=== PATIENT | male | born 1935 | race Caucasian/White ===

== ENCOUNTER → 2018-08-03 13:00 | Outpatient (CLI) | payer MEDICARE, SELFPAY ==
[2018-08-03 13:32] LABS: Add Manual Diff / Slide Review NO; Basophils Percent Auto 0.7 % (0-2); Hematocrit 31.1 % (41-53); Hemoglobin 10.6 g/dL (13.5-17.5); Lymphocytes Percent Auto 43.1 % (25-40); Mean Corpuscular Hemoglobin 34.8 PG (26-34); Mean Corpuscular Volume 102.2 fL (80-100); Monocytes Percent Auto 1.6 % (3-14); Neutrophils Absolute Auto 2000 /uL (3000-5900); Neutrophils Percent Auto 53.6 % (50-75); Platelet Count 219 X10^3/uL (150-400); Red Blood Cell Count 3.04 X10^6/uL (4.5-5.9); White Blood Cell Count 3.8 X10^3/uL (4.5-11.0)
[2018-08-03 13:41] LABS: Alanine Aminotransferase 14 IU/L (21-72); Albumin 4.5 g/dL (3.5-5.0); Albumin Globulin Ratio 1.6 (1.0-2.8); Alkaline Phosphatase 91 U/L (38-126); Aspartate Aminotransferase 29 IU/L (17-59); Bilirubin Total 0.7 mg/dL (0.2-1.3); Blood Urea Nitrogen 18 mg/dL (9-20); Calcium 9.4 mg/dL (8.4-10.2); Carbon Dioxide 26 mmol/L (22-32); Chloride 102 mmol/L (98-107); Estimated Glomerular Filt Rate > 60.0 mL/min (>60); Globulin 2.9 g/dL (1.7-4.1); Glucose 120 mg/dL (80-110); HEMOLYSIS < 15 (0-50); Lactate Dehydrogenase 460 U/L (313-618); Potassium 3.8 mmol/L (3.4-5.1); Sodium 140 mmol/L (137-145); Total Protein 7.4 g/dL (6.3-8.2)
== END ==
PROVIDERS: Family Provider Internal Medicine; PCP Internal Medicine
DX: C91.40 Hairy cell leukemia not having achieved remission (principal); C61 Malignant neoplasm of prostate
CPT/HCPCS: 36415; 80053; 83615; 85025

== ENCOUNTER 2018-11-26 15:49 | Emergency (ER) | payer MEDICARE, SELFPAY ==
[2018-11-26 15:51] VITALS: BP 148/87; PULSE 96; RESP 20; TEMP 36.4; O2SAT 100; BMI 21.7
--- NOTE | 2018-11-26 16:29 | ED.BACK ---
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 He reports that it has worsened over the past couple of days. He is being treated by [facility]. He called them today and he told them of his symptoms and he was told to come to the emergency room for to have a workup completed. He denies any chest pain. He denies any shortness of breath. No fevers no chills. No trauma to the shoulder area. He reports that the shoulder pain was exacerbated by the car ride. No nausea vomiting. He is able to speak full sentences. Pain is limited to the shoulders and thoracic spine area. He denies any recent loss of bladder or bowel control. MD Complaint: back pain Related Data Home Medications Medication Instructions Recorded Confirmed loratadine 15 mg PO DAILY #0 05/18/13 11/26/18 fluorouracil [Efudex] 1 cameron TOPICAL DAILY #0 11/26/16 11/26/18 lisinopril 5 mg PO QPM #0 05/20/17 11/26/18 acetaminophen 325 mg PO Q4-6H PRN 01/20/18 11/26/18 clobetasol [Cormax] 1 applic TOPICAL BID PRN 01/20/18 11/26/18 tamsulosin [Flomax] 0.4 mg PO BID 08/04/18 11/26/18 cyanocobalamin (vitamin B-12) 1,000 mcg PO DAILY 11/26/18 11/26/18 [Vitamin B-12] folic acid 1 mg PO QPM 11/26/18 11/26/18 leuprolide (4 month) [Lupron Depot 1 dose IM DIRECTED 11/26/18 11/26/18 (4 month)] melatonin 5 mg PO BEDTIME PRN 11/26/18 11/26/18 minocycline 100 mg PO DIRECTED PRN 11/26/18 11/26/18 Previous Rx's Medication Instructions Recorded oxycodone-acetaminophen [Percocet] 1 tab PO Q4-6H PRN #20 tab 11/26/18 Allergies Allergy/AdvReac Type Severity Reaction Status Date / Time pentostatin [PENTOSTATIN] Allergy Severe sepsis, Verified 05/12/18 13:38 Dr. Cruz thinks it was allergy per pt. Review of Systems <TRINO Mendoza - Last Filed: 11/26/18 21:44> Constitutional Denies chills, Denies fever(s), Denies lethargy and Denies weakness Eyes Denies change in vision, Denies eye discharge, Denies irritation and Denies loss of vision ENT Ears, Nose, Mouth, and Throat: Denies change in voice, Denies neck pain and Denies sore throat Cardiovascular Denies chest pain, Denies irregular heart rhythm, Denies lightheadedness, Denies palpitations, Denies dyspnea, Denies dyspnea on exertion and Denies orthopnea Respiratory Denies cough, Denies dyspnea, Denies dyspnea on exertion and Denies wheezing Gastrointestinal Gastrointestinal: Denies abdominal pain, Denies change in bowel habits, Denies diarrhea, Denies nausea and Denies vomiting Genitourinary Denies hematuria, Denies flank pain, Denies urinary incontinence and Denies urinary urgency Musculoskeletal Denies neck pain Comments: Back pain Integumentary/Breasts Denies pruritus, Denies erythema, Denies rash and Denies wounds Neurologic Denies confusion, Denies loss of vision and Denies weakness Psychiatric Denies anxiety, Denies confusion, Denies depression, Denies homicidal ideation and Denies suicidal ideation Endocrine Denies palpitations Hematologic/Lymphatic Denies easy bruising Allergic/Immunologic Denies wheezing PFSH <TRINO Mendoza - Last Filed: 11/26/18 21:44> Social History Smoking Status: Never smoker Social History Smoking Status: Never smoker Exam <TRINO Mendoza - Last Filed: 11/26/18 21:44> Initial Vital Signs Initial Vital Signs: Vital Signs Temperature 97.5 F L 11/26/18 15:51 Pulse Rate 96 H 11/26/18 15:51 Respiratory Rate 20 11/26/18 15:51 Blood Pressure 148/87 H 11/26/18 15:51 Pulse Oximetry 100 11/26/18 15:51 Const General: cooperative and well developed Nutritional Appearance: well nourished Orientation: alert, awake, oriented x3 and not confused [facility] Mouth: oral mucosae normal and moist mucous membranes Eyes General: appearance normal, both eyes and all related structures Eyelids: eyelids normal Conjunctivae: conjunctivae normal Sclera: sclerae normal Pupils: PERRL EOM: EOM intact bilaterally Resp Effort & Inspection: normal respiratory effort, able to speak in complete sentences, no respiratory distress and no use of accessory muscles Auscultation: clear to auscultation bilaterally, no rales, no rhonchi and no wheezes Cardio Rate: regular rate Rhythm: regular rhythm Heart Sounds: no click, no gallops, no murmurs and no rubs Pulses: normal peripheral pulses Back/Spine/Pelvis Other: The shoulders and thoracic back with no signs of trauma. No reproducible tenderness on palpation. Distal sensation is intact. Distal range of motion is intact. Distal pulses are intact. Neuro General: alert, oriented x3, gait normal and no focal motor deficits Speech: speech normal <Amada Viramontes MD - Last Filed: 11/26/18 22:05> Initial Vital Signs Initial Vital Signs: Vital Signs Temperature 97.5 F L 11/26/18 15:51 Pulse Rate 96 H 11/26/18 15:51 Respiratory Rate 20 11/26/18 15:51 Blood Pressure 148/87 H 11/26/18 15:51 Pulse Oximetry 100 11/26/18 15:51 Course <TRINO Mendoza - Last Filed: 11/26/18 21:44> Orders Ordered: ED Orders 11/26/18 17:04 EKG-12 Lead Stat 11/26/18 17:08 CT angio chest PE protocol Stat 11/26/18 17:09 CT abdomen pelvis w con Stat 11/26/18 17:41 Complete Blood Count AUTO DIFF Stat Comprehensive Metabolic Panel Stat D Dimer Stat Lipase Stat Troponin & CK Cardiac Panel Stat 11/26/18 19:07 Urine Microscopic Stat Discontinued Medications Hydromorphone HCl (Dilaudid) 0.5 mg IV NOW ONE Stop: 11/26/18 17:04 Last Admin: 11/26/18 17:52 Dose: 0.5 mg Sodium Chloride (Normal Saline 0.9%) 1,000 mls @ 150 mls/hr IV CONT FRIEDA Last Infusion: 11/26/18 21:14 Dose: 150 mls/hr Admin: 11/26/18 17:52 Dose: 150 mls/hr Ondansetron HCl (Zofran) 4 mg IV NOW ONE Stop: 11/26/18 17:09 Last Admin: 11/26/18 17:52 Dose: 4 mg Oxycodone/Acetaminophen (Endocet 5/325 Prepack) 1 bottle MISC SEEINSTR ONE Stop: 11/26/18 20:50 Last Admin: 11/26/18 21:03 Dose: 1 bottle Vital Signs - 8 hr 11/26/18 15:51 11/26/18 18:52 11/26/18 20:27 Temperature 97.5 F L Pulse Rate 96 H 88 90 Respiratory Rate 20 18 16 Blood Pressure 148/87 H Blood Pressure [Left Arm] 127/55 L 114/54 L Pulse Oximetry 100 99 96 <Amada Viramontes MD - Last Filed: 11/26/18 22:05> Orders Ordered: ED Orders 11/26/18 17:04 EKG-12 Lead Stat 11/26/18 17:08 CT angio chest PE protocol Stat 11/26/18 17:09 CT abdomen pelvis w con Stat 11/26/18 17:41 Complete Blood Count AUTO DIFF Stat Comprehensive Metabolic Panel Stat D Dimer Stat Lipase Stat Troponin & CK Cardiac Panel Stat 11/26/18 19:07 Urine Microscopic Stat Discontinued Medications Hydromorphone HCl (Dilaudid) 0.5 mg IV NOW ONE Stop: 11/26/18 17:04 Last Admin: 11/26/18 17:52 Dose: 0.5 mg Sodium Chloride (Normal Saline 0.9%) 1,000 mls @ 150 mls/hr IV CONT FRIEDA Last Infusion: 11/26/18 21:14 Dose: 150 mls/hr Admin: 11/26/18 17:52 Dose: 150 mls/hr Ondansetron HCl (Zofran) 4 mg IV NOW ONE Stop: 11/26/18 17:09 Last Admin: 11/26/18 17:52 Dose: 4 mg Oxycodone/Acetaminophen (Endocet 5/325 Prepack) 1 bottle MISC SEEINSTR ONE Stop: 11/26/18 20:50 Last Admin: 11/26/18 21:03 Dose: 1 bottle Vital Signs - 8 hr 11/26/18 15:51 11/26/18 18:52 11/26/18 20:27 Temperature 97.5 F L Pulse Rate 96 H 88 90 Respiratory Rate 20 18 16 Blood Pressure 148/87 H Blood Pressure [Left Arm] 127/55 L 114/54 L Pulse Oximetry 100 99 96 MDM - Back Pain/Injury <TRINO Mendoza - Last Filed: 11/26/18 21:44> Lab Data Result diagrams: 11/26/18 17:41 11/26/18 17:41 Lab Results 11/26/18 11/26/18 11/26/18 Range/Units 17:41 17:41 17:41 WBC 3.8 L (4.5-11.0) X10^3/uL RBC 2.78 L (4.5-5.9) X10^6/uL Hgb 9.9 L (13.5-17.5) g/dL Hct 29.0 L (41-53) % MCV 104.2 H (80-100) fL MCH 35.6 H (26-34) PG MCHC 34.1 (30-36) % RDW 18.1 H (11.6-14.8) % Plt Count 97 L (150-400) X10^3/uL Neut % (Auto) 75.3 H (50-75) % Lymph % (Auto) 21.7 L (25-40) % Dodge % (Auto) 1.9 L (3-14) % Eos % (Auto) 0.2 L (2-4) % Baso % (Auto) 0.9 (0-2) % Neut # (Auto) 2900 (7286-1016) /uL Lymph # (Auto) 800 L (8900-7767) /uL Dodge # (Auto) 100 (0-900) /uL Eos # (Auto) 0 (0-450) /uL Baso # (Auto) 0 (0-100) /uL D-Dimer 6330 H (<230) ng/mL Sodium 136 L (137-145) mmol/L Potassium 3.9 (3.4-5.1) mmol/L Chloride 104 (98-107) mmol/L Carbon Dioxide 18 L (22-32) mmol/L BUN 18 (9-20) mg/dL Creatinine 1.10 (0.66-1.25) mg/dL Estimated GFR > 60.0 (>60) mL/min BUN/Creatinine Ratio 16.4 (6-22) Glucose 105 (80-110) mg/dL Calcium 9.7 (8.4-10.2) mg/dL Total Bilirubin 1.4 H (0.2-1.3) mg/dL AST 27 (17-59) IU/L ALT 16 L (21-72) IU/L Alkaline Phosphatase 121 (38-126) U/L Total Creatine Kinase 51 L (55-170) U/L CK-MB (CK-2) TNP CK-MB (CK-2) Rel Index TNP Troponin I 0.026 (0.01-0.034) ng/mL Total Protein 7.3 (6.3-8.2) g/dL Albumin 4.4 (3.5-5.0) g/dL Globulin 2.9 (1.7-4.1) g/dL Albumin/Globulin Ratio 1.5 (1.0-2.8) Lipase 28 (23-300) U/L Urine RBC (0-5/HPF) Urine WBC (0-5/HPF) Ur Squamous Epith Cells Amorphous Sediment Urine Bacteria (None) Urine Mucus (Negative) Ur Culture Indicated? 11/26/18 Range/Units 19:07 WBC (4.5-11.0) X10^3/uL RBC (4.5-5.9) X10^6/uL Hgb (13.5-17.5) g/dL Hct (41-53) % MCV (80-100) fL MCH (26-34) PG MCHC (30-36) % RDW (11.6-14.8) % Plt Count (150-400) X10^3/uL Neut % (Auto) (50-75) % Lymph % (Auto) (25-40) % Dodge % (Auto) (3-14) % Eos % (Auto) (2-4) % Baso % (Auto) (0-2) % Neut # (Auto) (8182-7156) /uL Lymph # (Auto) (6087-5232) /uL Dodge # (Auto) (0-900) /uL Eos # (Auto) (0-450) /uL Baso # (Auto) (0-100) /uL D-Dimer (<230) ng/mL Sodium (137-145) mmol/L Potassium (3.4-5.1) mmol/L Chloride (98-107) mmol/L Carbon Dioxide (22-32) mmol/L BUN (9-20) mg/dL Creatinine (0.66-1.25) mg/dL Estimated GFR (>60) mL/min BUN/Creatinine Ratio (6-22) Glucose (80-110) mg/dL Calcium (8.4-10.2) mg/dL Total Bilirubin (0.2-1.3) mg/dL AST (17-59) IU/L ALT (21-72) IU/L Alkaline Phosphatase (38-126) U/L Total Creatine Kinase (55-170) U/L CK-MB (CK-2) CK-MB (CK-2) Rel Index Troponin I (0.01-0.034) ng/mL Total Protein (6.3-8.2) g/dL Albumin (3.5-5.0) g/dL Globulin (1.7-4.1) g/dL Albumin/Globulin Ratio (1.0-2.8) Lipase (23-300) U/L Urine RBC 10-30/hpf H (0-5/HPF) Urine WBC 1-5/hpf (0-5/HPF) Ur Squamous Epith Cells 0-1 /hpf Amorphous Sediment 2+ Urine Bacteria Occasional (0-1) (None) Urine Mucus 1+ H (Negative) Ur Culture Indicated? Cult not indicated Urine Dip Bedside Urine Glucose Negative Bedside Urine Bilirubin - Negative Bedside Urine Ketone +/- 5 Urine Specific [place] 1.015 Bedside Urine Occult Blood +++ Bedside Urine pH 8.5 Bedside Urine Protein + 30 Bedside Urine Urobilinogen 1+ 2mg Bedside Urine Nitrite - Negative Bedside Urine Leukocytes - Negative Esterase Imaging Data CT scan - abdomen: Radiologist's impression: [address] [address] [address] Scan Report Signed Patient: Prasad Hernandez MMR#: [id number] : 5Acct:[id number] Age/Sex: 83 / MDate of Service: 11/26/18 Loc: ED Accession Number: [id number] Procedure: CT abdomen pelvis w con Ordering Provider: Patrick Maddox PROCEDURE: CT ABDOMEN PELVIS W CON INDICATIONS: Pain across bilateral shoulders and thoracic spine. TECHNIQUE: After the administration of intravenous contrast, 5 mm thick sections acquired from the diaphragm to the symphysis. 5 mm coronal and sagittal reformats were acquired. For radiation dose reduction, the following was used: automated exposure control, adjustment of mA and/or kV according to patient size. COMPARISON: [facility], CT, CT ANGIO CHEST PE PROTOCOL, 11/26/2018, 18:17. [facility], CT, ABDOMEN/PELVIS WITH CONTRAST, 04/22/2013, 9:19. FINDINGS: Image quality: Excellent. ABDOMEN: Lung bases: Lung bases are clear. Heart size is normal. Solid organs: Liver is normal in size and enhancement. Gallbladder is distended with numerous punctate dependent densities likely representing gallstones. Biliary system is non dilated. Pancreas enhances normally. Spleen is normal in size and enhancement. No adrenal nodules. Kidneys demonstrate normal size and enhancement, without hydronephrosis. Small bilateral renal hypodensities are too small to characterize but likely represent cysts. Peritoneum and bowel: Bowel loops demonstrate normal wall thickness and caliber. No free fluid or air. Diverticulosis without acute diverticulitis. Nodes and vessels: Extensive retroperitoneal lymphadenopathy extending from the pelvic sidewalls up to the periportal region. No mesenteric adenopathy by size criteria. Scattered atherosclerotic calcifications. Aorta and inferior vena cava are normal in size. Miscellaneous: No ventral hernias. PELVIS: Genitourinary: There is enlargement of the prostate gland measuring approximately 4.8 x 8.5 cm in transverse dimension. The prostate is very irregular in contour with evidence of extension/invasion into the posterior bladder. There is a 2.0 cm nodular component extending into the right side of the urinary bladder near the right ureterovesicular junction. Remainder of the visualized urinary bladder demonstrate symmetric wall thickness. Miscellaneous: No inguinal hernias. Bones: There are innumerable sclerotic osseous lesions seen throughout the visualized pelvis and lumbar spine. A more lytic lesion is seen over the medial aspect of the right superior pubic ramus and pubic symphysis. No acute vertebral body compression fractures. IMPRESSION: 1. Enlarged prostate gland that is very irregular in contour and heterogeneous enhancement with apparent invasion into the posterior urinary bladder wall and a more nodular component extending into the right urinary bladder near the ureterovesicular junction. There is associated pelvic sidewall adenopathy as well as extensive retroperitoneal adenopathy extending into the level of the brian hepatis. This along with innumerable sclerotic osseous lesions is highly suspicious for metastatic prostate cancer. 2. Expansile, lytic lesion involving the right superior pubic ramus. Please see further details from dedicated chest CT. Findings were discussed with TRINO Mendoza at 1940 hrs. Chest findings were also discussed. Dictated by: Andrew Gilliam M.D. on 11/26/2018 19:27 Approved by: Andrew Gilliam M.D. on 11/26/2018 at 19:43 CT scan - chest: Radiologist's impression: CT Scan Report Signed Patient: Prasad Hernandez [facility]#: [id number] : 5Acct:[id number] Age/Sex: 83 / MDate of Service: 11/26/18 Loc: ED Accession Number: [id number] Procedure: CT angio chest PE protocol Ordering Provider: Patrick Maddox PROCEDURE: CT ANGIO CHEST PE PROTOCOL INDICATIONS: Pain across bilateral shoulders and thoracic spine TECHNIQUE: After the administration of intravenous contrast, 2 mm thick sections acquired from the pulmonary apices to the posterior costophrenic angles. 3-dimensional maximum intensity projection (MIP) coronal and sagittal reformats were then acquired through the thorax. For radiation dose reduction, the following was used: automated exposure control, adjustment of mA and/or kV according to patient size. COMPARISON: None. FINDINGS: Image quality: Excellent. Pulmonary arteries: Pulmonary arteries are normal in size, and demonstrate no intraluminal filling defects to suggest central pulmonary embolism. Lungs and pleura: Lungs are clear. Bibasilar atelectasis. No pleural effusions or pneumothorax. Central and peripheral airways are patent. Mediastinum: Heart size is normal, without pericardial effusion. No mediastinal or hilar adenopathy. Thoracic aorta is normal in caliber and enhancement. Esophagus is normal in caliber, with a small hiatal hernia. Bones and chest wall: There is a mixed lytic and sclerotic mass involving the anterior margin of the right third and measuring 2.9 x 3.7 cm in transverse dimension. There are also innumerable sclerotic lesions noted throughout the visualized thoracic and upper lumbar spine as well as numerous ribs. No acute compression fractures.. No axillary or supraclavicular adenopathy. Abdomen: Visualized upper abdominal solid organs appear normal in the early arterial phase of enhancement. IMPRESSION: 1. No acute pulmonary emboli. 2. No acute cardiopulmonary abnormalities. 3. Heterogeneous, expansile 3.7 cm mixed lytic and sclerotic mass involving the anterior margin of the right third rib. This may be an osseous primary neoplasm versus metastatic lesion. Additionally, there are innumerable sclerotic osseous lesions identified throughout the visualized thoracic and lumbar spine which are also suspicious for osseous metastatic disease. No acute compression fractures. Please see separate report for details of the abdomen and pelvis. Dictated by: Andrew Gilliam M.D. on 11/26/2018 19:13 Approved by: Andrew Gilliam M.D. on 11/26/2018 at 19:26 ECG Data Interpretation: EKG shows sinus rhythm with no ST elevation or depression. Occasional PVCs. Ventricular rate of 84. Pr interval of 165. QRS duration of 97. QTC of 426. MDM Narrative Medical decision making narrative: CBC shows white Count of 3.8. H&H of 9.9 and 29. this is consistent with his prior lab values. Chem panel was obtained and was unremarkable. D-dimer shows elevated D-dimer amount of 6300. PE protocol chest CT was obtained and was negative for a PE. Chest CT shows 3.7 sclerotic mass involving the anterior margin of the 3rd right rib. There are also multiple osseous lesions throughout the thoracic and lumbar spine suspicious for bony metastatic disease. Enlarged prostate gland irregular and contour is seen on abdominal CT. Which also seems to invade into the posterior urinary bladder wall there is also associated pelvic sidewall adenopathy and multiple sclerotic osseous lesions. EKG shows sinus rhythm with no ST elevation or depression. Troponin was obtained and was negative. Suspect that some of his discomfort is due to these bony lesions. Images were forwarded to [facility]. Discussed case with Dr. Stanton who was oncology on-call. Discussed plan of putting patient on pain medication Percocet and then have him following up with [facility] here in the next few days for re-evaluation. He is agreeable to the plan. For any worsening symptoms follow up sooner or return to the emergency room. <Amada Viramontes MD - Last Filed: 11/26/18 22:05> Lab Data Lab Results 11/26/18 11/26/18 11/26/18 Range/Units 17:41 17:41 17:41 WBC 3.8 L (4.5-11.0) X10^3/uL RBC 2.78 L (4.5-5.9) X10^6/uL Hgb 9.9 L (13.5-17.5) g/dL Hct 29.0 L (41-53) % MCV 104.2 H (80-100) fL MCH 35.6 H (26-34) PG MCHC 34.1 (30-36) % RDW 18.1 H (11.6-14.8) % Plt Count 97 L (150-400) X10^3/uL Neut % (Auto) 75.3 H (50-75) % Lymph % (Auto) 21.7 L (25-40) % Dodge % (Auto) 1.9 L (3-14) % Eos % (Auto) 0.2 L (2-4) % Baso % (Auto) 0.9 (0-2) % Neut # (Auto) 2900 (3070-7706) /uL Lymph # (Auto) 800 L (1744-8653) /uL Dodge # (Auto) 100 (0-900) /uL Eos # (Auto) 0 (0-450) /uL Baso # (Auto) 0 (0-100) /uL D-Dimer 6330 H (<230) ng/mL Sodium 136 L (137-145) mmol/L Potassium 3.9 (3.4-5.1) mmol/L Chloride 104 (98-107) mmol/L Carbon Dioxide 18 L (22-32) mmol/L BUN 18 (9-20) mg/dL Creatinine 1.10 (0.66-1.25) mg/dL Estimated GFR > 60.0 (>60) mL/min BUN/Creatinine Ratio 16.4 (6-22) Glucose 105 (80-110) mg/dL Calcium 9.7 (8.4-10.2) mg/dL Total Bilirubin 1.4 H (0.2-1.3) mg/dL AST 27 (17-59) IU/L ALT 16 L (21-72) IU/L Alkaline Phosphatase 121 (38-126) U/L Total Creatine Kinase 51 L (55-170) U/L CK-MB (CK-2) TNP CK-MB (CK-2) Rel Index TNP Troponin I 0.026 (0.01-0.034) ng/mL Total Protein 7.3 (6.3-8.2) g/dL Albumin 4.4 (3.5-5.0) g/dL Globulin 2.9 (1.7-4.1) g/dL Albumin/Globulin Ratio 1.5 (1.0-2.8) Lipase 28 (23-300) U/L Urine RBC (0-5/HPF) Urine WBC (0-5/HPF) Ur Squamous Epith Cells Amorphous Sediment Urine Bacteria (None) Urine Mucus (Negative) Ur Culture Indicated? 11/26/18 Range/Units 19:07 WBC (4.5-11.0) X10^3/uL RBC (4.5-5.9) X10^6/uL Hgb (13.5-17.5) g/dL Hct (41-53) % MCV (80-100) fL MCH (26-34) PG MCHC (30-36) % RDW (11.6-14.8) % Plt Count (150-400) X10^3/uL Neut % (Auto) (50-75) % Lymph % (Auto) (25-40) % Dodge % (Auto) (3-14) % Eos % (Auto) (2-4) % Baso % (Auto) (0-2) % Neut # (Auto) (3288-3469) /uL Lymph # (Auto) (8896-9763) /uL Dodge # (Auto) (0-900) /uL Eos # (Auto) (0-450) /uL Baso # (Auto) (0-100) /uL D-Dimer (<230) ng/mL Sodium (137-145) mmol/L Potassium (3.4-5.1) mmol/L Chloride (98-107) mmol/L Carbon Dioxide (22-32) mmol/L BUN (9-20) mg/dL Creatinine (0.66-1.25) mg/dL Estimated GFR (>60) mL/min BUN/Creatinine Ratio (6-22) Glucose (80-110) mg/dL Calcium (8.4-10.2) mg/dL Total Bilirubin (0.2-1.3) mg/dL AST (17-59) IU/L ALT (21-72) IU/L Alkaline Phosphatase (38-126) U/L Total Creatine Kinase (55-170) U/L CK-MB (CK-2) CK-MB (CK-2) Rel Index Troponin I (0.01-0.034) ng/mL Total Protein (6.3-8.2) g/dL Albumin (3.5-5.0) g/dL Globulin (1.7-4.1) g/dL Albumin/Globulin Ratio (1.0-2.8) Lipase (23-300) U/L Urine RBC 10-30/hpf H (0-5/HPF) Urine WBC 1-5/hpf (0-5/HPF) Ur Squamous Epith Cells 0-1 /hpf Amorphous Sediment 2+ Urine Bacteria Occasional (0-1) (None) Urine Mucus 1+ H (Negative) Ur Culture Indicated? Cult not indicated Urine Dip Bedside Urine Glucose Negative Bedside Urine Bilirubin - Negative Bedside Urine Ketone +/- 5 Urine Specific [place] 1.015 Bedside Urine Occult Blood +++ Bedside Urine pH 8.5 Bedside Urine Protein + 30 Bedside Urine Urobilinogen 1+ 2mg Bedside Urine Nitrite - Negative Bedside Urine Leukocytes - Negative Esterase Discharge Plan Departure Patient Disposition: Home Clinical Impression: Bilateral shoulder pain Qualifiers: Chronicity: acute Qualified Code(s): M25.511 - Pain in right shoulder Discharge Date/Time: 11/26/18 21:26 Interventions: ED Discharge Assessment Last Done: 11/26/18 21:25 Instructions: DI for Shoulder Pain Activity Restrictions/Additional Instructions: Laboratory results show anemia which is consistent with her prior lab values. Cardiac enzymes EKG were unremarkable. CT of the chest was negative for any blood clots in the lungs. CT of the abdomen and the chest show multiple bony lesions to the spine and pelvis area. Suspect that some of the pain into her shoulder area is due to bony lesions to your thoracic spine area. Recommend using the Tylenol as needed for discomfort. Your prescribed some Percocet for breakthrough pain. Call [facility] tomorrow and discuss with them results and discussed with them follow up here in the next few days. For any worsening symptoms return to the emergency room or follow up sooner. Prescriptions: New oxycodone-acetaminophen [Percocet] 5-325 mg tablet 1 tab PO Q4-6H PRN (Reason: pain) Qty: 20 RF: 0 No Action loratadine 10 MG tablet 15 mg PO DAILY Qty: 0 RF: 0 fluorouracil [Efudex] 5 % cream 1 cameron Topical DAILY Qty: 0 RF: 0 lisinopril 5 MG tablet 5 mg PO QPM Qty: 0 RF: 0 clobetasol [Cormax] 0.05 % Solution 1 applic TOPICAL BID PRN (Reason: UNKNOWN) RF: 0 acetaminophen 325 mg Tablet 325 mg PO Q4-6H PRN (Reason: Pain) RF: 0 tamsulosin [Flomax] 0.4 mg Capsule 0.4 mg PO BID RF: 0 minocycline 100 mg capsule 100 mg PO DIRECTED PRN (Reason: unknown) RF: 0 cyanocobalamin (vitamin B-12) [Vitamin B-12] 1,000 mcg Tablet 1,000 mcg PO DAILY RF: 0 Lupron Depot (4 month) 30 mg Syringe Kit 1 dose IM DIRECTED RF: 0 folic acid 1 mg Tablet 1 mg PO QPM RF: 0 melatonin 5 mg Tablet 5 mg PO BEDTIME PRN (Reason: Insomnia) RF: 0 Referrals: Davin Ramirez MD [Primary Care Provider] -
--- NOTE | 2018-11-26 17:08 | DI.CT.S_ITS ---
PROCEDURE: CT ANGIO CHEST PE PROTOCOL INDICATIONS: Pain across bilateral shoulders and thoracic spine TECHNIQUE: After the administration of intravenous contrast, 2 mm thick sections acquired from the pulmonary apices to the posterior costophrenic angles. 3-dimensional maximum intensity projection (MIP) coronal and sagittal reformats were then acquired through the thorax. For radiation dose reduction, the following was used: automated exposure control, adjustment of mA and/or kV according to patient size. COMPARISON: None. FINDINGS: Image quality: Excellent. Pulmonary arteries: Pulmonary arteries are normal in size, and demonstrate no intraluminal filling defects to suggest central pulmonary embolism. Lungs and pleura: Lungs are clear. Bibasilar atelectasis. No pleural effusions or pneumothorax. Central and peripheral airways are patent. Mediastinum: Heart size is normal, without pericardial effusion. No mediastinal or hilar adenopathy. Thoracic aorta is normal in caliber and enhancement. Esophagus is normal in caliber, with a small hiatal hernia. Bones and chest wall: There is a mixed lytic and sclerotic mass involving the anterior margin of the right third and measuring 2.9 x 3.7 cm in transverse dimension. There are also innumerable sclerotic lesions noted throughout the visualized thoracic and upper lumbar spine as well as numerous ribs. No acute compression fractures.. No axillary or supraclavicular adenopathy. Abdomen: Visualized upper abdominal solid organs appear normal in the early arterial phase of enhancement. IMPRESSION: 1. No acute pulmonary emboli. 2. No acute cardiopulmonary abnormalities. 3. Heterogeneous, expansile 3.7 cm mixed lytic and sclerotic mass involving the anterior margin of the right third rib. This may be an osseous primary neoplasm versus metastatic lesion. Additionally, there are innumerable sclerotic osseous lesions identified throughout the visualized thoracic and lumbar spine which are also suspicious for osseous metastatic disease. No acute compression fractures. Please see separate report for details of the abdomen and pelvis. Dictated by: Andrew Gilliam M.D. on 11/26/2018 19:13 Approved by: Andrew Gilliam M.D. on 11/26/2018 at 19:26
--- NOTE | 2018-11-26 17:09 | DI.CT.S_ITS ---
PROCEDURE: CT ABDOMEN PELVIS W CON INDICATIONS: Pain across bilateral shoulders and thoracic spine. TECHNIQUE: After the administration of intravenous contrast, 5 mm thick sections acquired from the diaphragm to the symphysis. 5 mm coronal and sagittal reformats were acquired. For radiation dose reduction, the following was used: automated exposure control, adjustment of mA and/or kV according to patient size. COMPARISON: [facility], CT, CT ANGIO CHEST PE PROTOCOL, 11/26/2018, 18:17. [facility], CT, ABDOMEN/PELVIS WITH CONTRAST, 04/22/2013, 9:19. FINDINGS: Image quality: Excellent. ABDOMEN: Lung bases: Lung bases are clear. Heart size is normal. Solid organs: Liver is normal in size and enhancement. Gallbladder is distended with numerous punctate dependent densities likely representing gallstones. Biliary system is non dilated. Pancreas enhances normally. Spleen is normal in size and enhancement. No adrenal nodules. Kidneys demonstrate normal size and enhancement, without hydronephrosis. Small bilateral renal hypodensities are too small to characterize but likely represent cysts. Peritoneum and bowel: Bowel loops demonstrate normal wall thickness and caliber. No free fluid or air. Diverticulosis without acute diverticulitis. Nodes and vessels: Extensive retroperitoneal lymphadenopathy extending from the pelvic sidewalls up to the periportal region. No mesenteric adenopathy by size criteria. Scattered atherosclerotic calcifications. Aorta and inferior vena cava are normal in size. Miscellaneous: No ventral hernias. PELVIS: Genitourinary: There is enlargement of the prostate gland measuring approximately 4.8 x 8.5 cm in transverse dimension. The prostate is very irregular in contour with evidence of extension/invasion into the posterior bladder. There is a 2.0 cm nodular component extending into the right side of the urinary bladder near the right ureterovesicular junction. Remainder of the visualized urinary bladder demonstrate symmetric wall thickness. Miscellaneous: No inguinal hernias. Bones: There are innumerable sclerotic osseous lesions seen throughout the visualized pelvis and lumbar spine. A more lytic lesion is seen over the medial aspect of the right superior pubic ramus and pubic symphysis. No acute vertebral body compression fractures. IMPRESSION: 1. Enlarged prostate gland that is very irregular in contour and heterogeneous enhancement with apparent invasion into the posterior urinary bladder wall and a more nodular component extending into the right urinary bladder near the ureterovesicular junction. There is associated pelvic sidewall adenopathy as well as extensive retroperitoneal adenopathy extending into the level of the brian hepatis. This along with innumerable sclerotic osseous lesions is highly suspicious for metastatic prostate cancer. 2. Expansile, lytic lesion involving the right superior pubic ramus. Please see further details from dedicated chest CT. Findings were discussed with TRINO Mendoza at 1940 hrs. Chest findings were also discussed. Dictated by: Andrew Gilliam M.D. on 11/26/2018 19:27 Approved by: Andrew Gilliam M.D. on 11/26/2018 at 19:43
[2018-11-26 17:51] LABS: Add Manual Diff / Slide Review NO; Basophils Absolute Auto 0 /uL (0-100); Basophils Percent Auto 0.9 % (0-2); Eosinophils Absolute Auto 0 /uL (0-450); Eosinophils Percent Auto 0.2 % (2-4); Hemoglobin 9.9 g/dL (13.5-17.5); Lymphocytes Absolute Auto 800 /uL (1100-4500); Lymphocytes Percent Auto 21.7 % (25-40); Mean Corpuscular HGB Conc 34.1 % (30-36); Mean Corpuscular Hemoglobin 35.6 PG (26-34); Mean Corpuscular Volume 104.2 fL (80-100); Monocytes Absolute Auto 100 /uL (0-900); Monocytes Percent Auto 1.9 % (3-14); Neutrophils Absolute Auto 2900 /uL (1500-7000); Neutrophils Percent Auto 75.3 % (50-75); Platelet Count 97 X10^3/uL (150-400); Red Blood Cell Count 2.78 X10^6/uL (4.5-5.9); Red Cell Distribution Width 18.1 % (11.6-14.8); White Blood Cell Count 3.8 X10^3/uL (4.5-11.0)
[2018-11-26] MEDS: HYDROMORPHONE 1 MG INJ 0.5 MG IV (17:52)
[2018-11-26] MEDS: SODIUM CHLORIDE 0.9% 1,000 ML 150 ML IV (17:52)
[2018-11-26] MEDS: ONDANSETRON 4 MG/2 ML INJ IV (17:52)
[2018-11-26 18:04] LABS: Alanine Aminotransferase 16 IU/L (21-72); Albumin 4.4 g/dL (3.5-5.0); Albumin Globulin Ratio 1.5 (1.0-2.8); Alkaline Phosphatase 121 U/L (38-126); Aspartate Aminotransferase 27 IU/L (17-59); BUN Creatinine Ratio 16.4 (6-22); Bilirubin Total 1.4 mg/dL (0.2-1.3); Blood Urea Nitrogen 18 mg/dL (9-20); Calcium 9.7 mg/dL (8.4-10.2); Carbon Dioxide 18 mmol/L (22-32); Chloride 104 mmol/L (98-107); Creatine Kinase 51 U/L (55-170); Estimated Glomerular Filt Rate > 60.0 mL/min (>60); Globulin 2.9 g/dL (1.7-4.1); Glucose 105 mg/dL (80-110); HEMOLYSIS < 15 (0-50); Lipase 28 U/L (23-300); Potassium 3.9 mmol/L (3.4-5.1); Sodium 136 mmol/L (137-145); Total Protein 7.3 g/dL (6.3-8.2)
[2018-11-26 18:16] LABS: Troponin I 0.026 ng/mL (0.01-0.034)
[2018-11-26 18:23] LABS: D Dimer 6330 ng/mL (<230)
[2018-11-26 18:52] VITALS: BP 127/55; PULSE 88; RESP 18; O2SAT 99
[2018-11-26 19:18] LABS: RBC Urine 10-30/HPF (0-5/HPF); WBC Urine 1-5/HPF (0-5/HPF)
[2018-11-26 19:19] LABS: Amorphous Sediment Urine 2+; Bacteria Urine Occasional (0-1); Culture Indicated Urine Cult Not Indicated; Mucus Urine 1+ (Negative); Squamous Epithelial Cell Urine 0-1 /HPF
--- NOTE | 2018-11-26 20:24 | ED_ITS ---
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 He reports that it has worsened over the past couple of days. He is being treated by [facility]. He called them today and he told them of his symptoms and he was told to come to the emergency room for to have a workup completed. He denies any chest pain. He denies any shortness of breath. No fevers no chills. No trauma to the shoulder area. He reports that the shoulder pain was exacerbated by the car ride. No nausea vomiting. He is able to speak full sentences. Pain is limited to the shoulders and thoracic spine area. He denies any recent loss of bladder or bowel control. MD Complaint: back pain Related Data Home Medications Medication Instructions Recorded Confirmed loratadine 15 mg PO DAILY #0 05/18/13 11/26/18 fluorouracil [Efudex] 1 cameron TOPICAL DAILY #0 11/26/16 11/26/18 lisinopril 5 mg PO QPM #0 05/20/17 11/26/18 acetaminophen 325 mg PO Q4-6H PRN 01/20/18 11/26/18 clobetasol [Cormax] 1 applic TOPICAL BID PRN 01/20/18 11/26/18 tamsulosin [Flomax] 0.4 mg PO BID 08/04/18 11/26/18 cyanocobalamin (vitamin B-12) 1,000 mcg PO DAILY 11/26/18 11/26/18 [Vitamin B-12] folic acid 1 mg PO QPM 11/26/18 11/26/18 leuprolide (4 month) [Lupron Depot 1 dose IM DIRECTED 11/26/18 11/26/18 (4 month)] melatonin 5 mg PO BEDTIME PRN 11/26/18 11/26/18 minocycline 100 mg PO DIRECTED PRN 11/26/18 11/26/18 Previous Rx's Medication Instructions Recorded oxycodone-acetaminophen [Percocet] 1 tab PO Q4-6H PRN #20 tab 11/26/18 Allergies Allergy/AdvReac Type Severity Reaction Status Date / Time pentostatin [PENTOSTATIN] Allergy Severe sepsis, Verified 05/12/18 13:38 Dr. Cruz thinks it was allergy per pt. Review of Systems <TRINO Mendoza - Last Filed: 11/26/18 21:44> Constitutional Denies chills, Denies fever(s), Denies lethargy and Denies weakness Eyes Denies change in vision, Denies eye discharge, Denies irritation and Denies loss of vision ENT Ears, Nose, Mouth, and Throat: Denies change in voice, Denies neck pain and Denies sore throat Cardiovascular Denies chest pain, Denies irregular heart rhythm, Denies lightheadedness, Denies palpitations, Denies dyspnea, Denies dyspnea on exertion and Denies orthopnea Respiratory Denies cough, Denies dyspnea, Denies dyspnea on exertion and Denies wheezing Gastrointestinal Gastrointestinal: Denies abdominal pain, Denies change in bowel habits, Denies diarrhea, Denies nausea and Denies vomiting Genitourinary Denies hematuria, Denies flank pain, Denies urinary incontinence and Denies urinary urgency Musculoskeletal Denies neck pain Comments: Back pain Integumentary/Breasts Denies pruritus, Denies erythema, Denies rash and Denies wounds Neurologic Denies confusion, Denies loss of vision and Denies weakness Psychiatric Denies anxiety, Denies confusion, Denies depression, Denies homicidal ideation and Denies suicidal ideation Endocrine Denies palpitations Hematologic/Lymphatic Denies easy bruising Allergic/Immunologic Denies wheezing PFSH <TRINO Mendoza - Last Filed: 11/26/18 21:44> Social History Smoking Status: Never smoker Social History Smoking Status: Never smoker Exam <TRINO Mendoza - Last Filed: 11/26/18 21:44> Initial Vital Signs Initial Vital Signs: Vital Signs Temperature 97.5 F L 11/26/18 15:51 Pulse Rate 96 H 11/26/18 15:51 Respiratory Rate 20 11/26/18 15:51 Blood Pressure 148/87 H 11/26/18 15:51 Pulse Oximetry 100 11/26/18 15:51 Const General: cooperative and well developed Nutritional Appearance: well nourished Orientation: alert, awake, oriented x3 and not confused [facility] Mouth: oral mucosae normal and moist mucous membranes Eyes General: appearance normal, both eyes and all related structures Eyelids: eyelids normal Conjunctivae: conjunctivae normal Sclera: sclerae normal Pupils: PERRL EOM: EOM intact bilaterally Resp Effort & Inspection: normal respiratory effort, able to speak in complete sentences, no respiratory distress and no use of accessory muscles Auscultation: clear to auscultation bilaterally, no rales, no rhonchi and no wheezes Cardio Rate: regular rate Rhythm: regular rhythm Heart Sounds: no click, no gallops, no murmurs and no rubs Pulses: normal peripheral pulses Back/Spine/Pelvis Other: The shoulders and thoracic back with no signs of trauma. No reproducible tenderness on palpation. Distal sensation is intact. Distal range of motion is intact. Distal pulses are intact. Neuro General: alert, oriented x3, gait normal and no focal motor deficits Speech: speech normal <Amada Viramontes MD - Last Filed: 11/26/18 22:05> Initial Vital Signs Initial Vital Signs: Vital Signs Temperature 97.5 F L 11/26/18 15:51 Pulse Rate 96 H 11/26/18 15:51 Respiratory Rate 20 11/26/18 15:51 Blood Pressure 148/87 H 11/26/18 15:51 Pulse Oximetry 100 11/26/18 15:51 Course <TRINO Mendoza - Last Filed: 11/26/18 21:44> Orders Ordered: ED Orders 11/26/18 17:04 EKG-12 Lead Stat 11/26/18 17:08 CT angio chest PE protocol Stat 11/26/18 17:09 CT abdomen pelvis w con Stat 11/26/18 17:41 Complete Blood Count AUTO DIFF Stat Comprehensive Metabolic Panel Stat D Dimer Stat Lipase Stat Troponin & CK Cardiac Panel Stat 11/26/18 19:07 Urine Microscopic Stat Discontinued Medications Hydromorphone HCl (Dilaudid) 0.5 mg IV NOW ONE Stop: 11/26/18 17:04 Last Admin: 11/26/18 17:52 Dose: 0.5 mg Sodium Chloride (Normal Saline 0.9%) 1,000 mls @ 150 mls/hr IV CONT FRIEDA Last Infusion: 11/26/18 21:14 Dose: 150 mls/hr Admin: 11/26/18 17:52 Dose: 150 mls/hr Ondansetron HCl (Zofran) 4 mg IV NOW ONE Stop: 11/26/18 17:09 Last Admin: 11/26/18 17:52 Dose: 4 mg Oxycodone/Acetaminophen (Endocet 5/325 Prepack) 1 bottle MISC SEEINSTR ONE Stop: 11/26/18 20:50 Last Admin: 11/26/18 21:03 Dose: 1 bottle Vital Signs - 8 hr 11/26/18 15:51 11/26/18 18:52 11/26/18 20:27 Temperature 97.5 F L Pulse Rate 96 H 88 90 Respiratory Rate 20 18 16 Blood Pressure 148/87 H Blood Pressure [Left Arm] 127/55 L 114/54 L Pulse Oximetry 100 99 96 <Amada Viramontes MD - Last Filed: 11/26/18 22:05> Orders Ordered: ED Orders 11/26/18 17:04 EKG-12 Lead Stat 11/26/18 17:08 CT angio chest PE protocol Stat 11/26/18 17:09 CT abdomen pelvis w con Stat 11/26/18 17:41 Complete Blood Count AUTO DIFF Stat Comprehensive Metabolic Panel Stat D Dimer Stat Lipase Stat Troponin & CK Cardiac Panel Stat 11/26/18 19:07 Urine Microscopic Stat Discontinued Medications Hydromorphone HCl (Dilaudid) 0.5 mg IV NOW ONE Stop: 11/26/18 17:04 Last Admin: 11/26/18 17:52 Dose: 0.5 mg Sodium Chloride (Normal Saline 0.9%) 1,000 mls @ 150 mls/hr IV CONT FRIEDA Last Infusion: 11/26/18 21:14 Dose: 150 mls/hr Admin: 11/26/18 17:52 Dose: 150 mls/hr Ondansetron HCl (Zofran) 4 mg IV NOW ONE Stop: 11/26/18 17:09 Last Admin: 11/26/18 17:52 Dose: 4 mg Oxycodone/Acetaminophen (Endocet 5/325 Prepack) 1 bottle MISC SEEINSTR ONE Stop: 11/26/18 20:50 Last Admin: 11/26/18 21:03 Dose: 1 bottle Vital Signs - 8 hr 11/26/18 15:51 11/26/18 18:52 11/26/18 20:27 Temperature 97.5 F L Pulse Rate 96 H 88 90 Respiratory Rate 20 18 16 Blood Pressure 148/87 H Blood Pressure [Left Arm] 127/55 L 114/54 L Pulse Oximetry 100 99 96 MDM - Back Pain/Injury <TRINO Mendoza - Last Filed: 11/26/18 21:44> Lab Data Result diagrams: 11/26/18 17:41 11/26/18 17:41 Lab Results 11/26/18 11/26/18 11/26/18 Range/Units 17:41 17:41 17:41 WBC 3.8 L (4.5-11.0) X10^3/uL RBC 2.78 L (4.5-5.9) X10^6/uL Hgb 9.9 L (13.5-17.5) g/dL Hct 29.0 L (41-53) % MCV 104.2 H (80-100) fL MCH 35.6 H (26-34) PG MCHC 34.1 (30-36) % RDW 18.1 H (11.6-14.8) % Plt Count 97 L (150-400) X10^3/uL Neut % (Auto) 75.3 H (50-75) % Lymph % (Auto) 21.7 L (25-40) % Door % (Auto) 1.9 L (3-14) % Eos % (Auto) 0.2 L (2-4) % Baso % (Auto) 0.9 (0-2) % Neut # (Auto) 2900 (7655-8603) /uL Lymph # (Auto) 800 L (7823-6124) /uL Door # (Auto) 100 (0-900) /uL Eos # (Auto) 0 (0-450) /uL Baso # (Auto) 0 (0-100) /uL D-Dimer 6330 H (<230) ng/mL Sodium 136 L (137-145) mmol/L Potassium 3.9 (3.4-5.1) mmol/L Chloride 104 (98-107) mmol/L Carbon Dioxide 18 L (22-32) mmol/L BUN 18 (9-20) mg/dL Creatinine 1.10 (0.66-1.25) mg/dL Estimated GFR > 60.0 (>60) mL/min BUN/Creatinine Ratio 16.4 (6-22) Glucose 105 (80-110) mg/dL Calcium 9.7 (8.4-10.2) mg/dL Total Bilirubin 1.4 H (0.2-1.3) mg/dL AST 27 (17-59) IU/L ALT 16 L (21-72) IU/L Alkaline Phosphatase 121 (38-126) U/L Total Creatine Kinase 51 L (55-170) U/L CK-MB (CK-2) TNP CK-MB (CK-2) Rel Index TNP Troponin I 0.026 (0.01-0.034) ng/mL Total Protein 7.3 (6.3-8.2) g/dL Albumin 4.4 (3.5-5.0) g/dL Globulin 2.9 (1.7-4.1) g/dL Albumin/Globulin Ratio 1.5 (1.0-2.8) Lipase 28 (23-300) U/L Urine RBC (0-5/HPF) Urine WBC (0-5/HPF) Ur Squamous Epith Cells Amorphous Sediment Urine Bacteria (None) Urine Mucus (Negative) Ur Culture Indicated? 11/26/18 Range/Units 19:07 WBC (4.5-11.0) X10^3/uL RBC (4.5-5.9) X10^6/uL Hgb (13.5-17.5) g/dL Hct (41-53) % MCV (80-100) fL MCH (26-34) PG MCHC (30-36) % RDW (11.6-14.8) % Plt Count (150-400) X10^3/uL Neut % (Auto) (50-75) % Lymph % (Auto) (25-40) % Door % (Auto) (3-14) % Eos % (Auto) (2-4) % Baso % (Auto) (0-2) % Neut # (Auto) (5786-4788) /uL Lymph # (Auto) (9746-8096) /uL Door # (Auto) (0-900) /uL Eos # (Auto) (0-450) /uL Baso # (Auto) (0-100) /uL D-Dimer (<230) ng/mL Sodium (137-145) mmol/L Potassium (3.4-5.1) mmol/L Chloride (98-107) mmol/L Carbon Dioxide (22-32) mmol/L BUN (9-20) mg/dL Creatinine (0.66-1.25) mg/dL Estimated GFR (>60) mL/min BUN/Creatinine Ratio (6-22) Glucose (80-110) mg/dL Calcium (8.4-10.2) mg/dL Total Bilirubin (0.2-1.3) mg/dL AST (17-59) IU/L ALT (21-72) IU/L Alkaline Phosphatase (38-126) U/L Total Creatine Kinase (55-170) U/L CK-MB (CK-2) CK-MB (CK-2) Rel Index Troponin I (0.01-0.034) ng/mL Total Protein (6.3-8.2) g/dL Albumin (3.5-5.0) g/dL Globulin (1.7-4.1) g/dL Albumin/Globulin Ratio (1.0-2.8) Lipase (23-300) U/L Urine RBC 10-30/hpf H (0-5/HPF) Urine WBC 1-5/hpf (0-5/HPF) Ur Squamous Epith Cells 0-1 /hpf Amorphous Sediment 2+ Urine Bacteria Occasional (0-1) (None) Urine Mucus 1+ H (Negative) Ur Culture Indicated? Cult not indicated Urine Dip Bedside Urine Glucose Negative Bedside Urine Bilirubin - Negative Bedside Urine Ketone +/- 5 Urine Specific [place]drow 1.015 Bedside Urine Occult Blood +++ Bedside Urine pH 8.5 Bedside Urine Protein + 30 Bedside Urine Urobilinogen 1+ 2mg Bedside Urine Nitrite - Negative Bedside Urine Leukocytes - Negative Esterase Imaging Data CT scan - abdomen: Radiologist's impression: [address] [address] [address] Scan Report Signed Patient: Prasad Hernandez MMR#: [id number] : 5Acct:[id number] Age/Sex: 83 / MDate of Service: 11/26/18 Loc: ED Accession Number: [id number] Procedure: CT abdomen pelvis w con Ordering Provider: Patrick Maddox PROCEDURE: CT ABDOMEN PELVIS W CON INDICATIONS: Pain across bilateral shoulders and thoracic spine. TECHNIQUE: After the administration of intravenous contrast, 5 mm thick sections acquired from the diaphragm to the symphysis. 5 mm coronal and sagittal reformats were acquired. For radiation dose reduction, the following was used: automated exposure control, adjustment of mA and/or kV according to patient size. COMPARISON: [facility], CT, CT ANGIO CHEST PE PROTOCOL, 11/26/2018, 18:17. [facility], CT, ABDOMEN/PELVIS WITH CONTRAST, 04/22/2013, 9:19. FINDINGS: Image quality: Excellent. ABDOMEN: Lung bases: Lung bases are clear. Heart size is normal. Solid organs: Liver is normal in size and enhancement. Gallbladder is distended with numerous punctate dependent densities likely representing gallstones. Biliary system is non dilated. Pancreas enhances normally. Spleen is normal in size and enhancement. No adrenal nodules. Kidneys demonstrate normal size and enhancement, without hydronephrosis. Small bilateral renal hypodensities are too small to characterize but likely represent cysts. Peritoneum and bowel: Bowel loops demonstrate normal wall thickness and caliber. No free fluid or air. Diverticulosis without acute diverticulitis. Nodes and vessels: Extensive retroperitoneal lymphadenopathy extending from the pelvic sidewalls up to the periportal region. No mesenteric adenopathy by size criteria. Scattered atherosclerotic calcifications. Aorta and inferior vena cava are normal in size. Miscellaneous: No ventral hernias. PELVIS: Genitourinary: There is enlargement of the prostate gland measuring approximately 4.8 x 8.5 cm in transverse dimension. The prostate is very irregular in contour with evidence of extension/invasion into the posterior bladder. There is a 2.0 cm nodular component extending into the right side of the urinary bladder near the right ureterovesicular junction. Remainder of the visualized urinary bladder demonstrate symmetric wall thickness. Miscellaneous: No inguinal hernias. Bones: There are innumerable sclerotic osseous lesions seen throughout the visualized pelvis and lumbar spine. A more lytic lesion is seen over the medial aspect of the right superior pubic ramus and pubic symphysis. No acute vertebral body compression fractures. IMPRESSION: 1. Enlarged prostate gland that is very irregular in contour and heterogeneous enhancement with apparent invasion into the posterior urinary bladder wall and a more nodular component extending into the right urinary bladder near the ureterovesicular junction. There is associated pelvic sidewall adenopathy as well as extensive retroperitoneal adenopathy extending into the level of the brian hepatis. This along with innumerable sclerotic osseous lesions is highly suspicious for metastatic prostate cancer. 2. Expansile, lytic lesion involving the right superior pubic ramus. Please see further details from dedicated chest CT. Findings were discussed with TRINO Mendoza at 1940 hrs. Chest findings were also discussed. Dictated by: Andrew Gilliam M.D. on 11/26/2018 19:27 Approved by: Andrew Gilliam M.D. on 11/26/2018 at 19:43 CT scan - chest: Radiologist's impression: CT Scan Report Signed Patient: Prasad Hernandez [facility]#: [id number] : 5Acct:[id number] Age/Sex: 83 / MDate of Service: 11/26/18 Loc: ED Accession Number: [id number] Procedure: CT angio chest PE protocol Ordering Provider: Patrick Maddox PROCEDURE: CT ANGIO CHEST PE PROTOCOL INDICATIONS: Pain across bilateral shoulders and thoracic spine TECHNIQUE: After the administration of intravenous contrast, 2 mm thick sections acquired from the pulmonary apices to the posterior costophrenic angles. 3-dimensional maximum intensity projection (MIP) coronal and sagittal reformats were then acquired through the thorax. For radiation dose reduction, the following was used: automated exposure control, adjustment of mA and/or kV according to patient size. COMPARISON: None. FINDINGS: Image quality: Excellent. Pulmonary arteries: Pulmonary arteries are normal in size, and demonstrate no intraluminal filling defects to suggest central pulmonary embolism. Lungs and pleura: Lungs are clear. Bibasilar atelectasis. No pleural effusions or pneumothorax. Central and peripheral airways are patent. Mediastinum: Heart size is normal, without pericardial effusion. No mediastinal or hilar adenopathy. Thoracic aorta is normal in caliber and enhancement. Esophagus is normal in caliber, with a small hiatal hernia. Bones and chest wall: There is a mixed lytic and sclerotic mass involving the anterior margin of the right third and measuring 2.9 x 3.7 cm in transverse dimension. There are also innumerable sclerotic lesions noted throughout the visualized thoracic and upper lumbar spine as well as numerous ribs. No acute compression fractures.. No axillary or supraclavicular adenopathy. Abdomen: Visualized upper abdominal solid organs appear normal in the early arterial phase of enhancement. IMPRESSION: 1. No acute pulmonary emboli. 2. No acute cardiopulmonary abnormalities. 3. Heterogeneous, expansile 3.7 cm mixed lytic and sclerotic mass involving the anterior margin of the right third rib. This may be an osseous primary neoplasm versus metastatic lesion. Additionally, there are innumerable sclerotic osseous lesions identified throughout the visualized thoracic and lumbar spine which are also suspicious for osseous metastatic disease. No acute compression fractures. Please see separate report for details of the abdomen and pelvis. Dictated by: Andrew Gilliam M.D. on 11/26/2018 19:13 Approved by: Andrew Gilliam M.D. on 11/26/2018 at 19:26 ECG Data Interpretation: EKG shows sinus rhythm with no ST elevation or depression. Occasional PVCs. Ventricular rate of 84. Pr interval of 165. QRS duration of 97. QTC of 426. MDM Narrative Medical decision making narrative: CBC shows white Count of 3.8. H&H of 9.9 and 29. this is consistent with his prior lab values. Chem panel was obtained and was unremarkable. D-dimer shows elevated D-dimer amount of 6300. PE protocol chest CT was obtained and was negative for a PE. Chest CT shows 3.7 s clerotic mass involving the anterior margin of the 3rd right rib. There are also multiple osseous lesions throughout the thoracic and lumbar spine suspicious for bony metastatic disease. Enlarged prostate gland irregular and contour is seen on abdominal CT. Which also seems to invade into the posterior urinary bladder wall there is also associated pelvic sidewall adenopathy and multiple sclerotic osseous lesions. EKG shows sinus rhythm with no ST elevation or depression. Troponin was obtained and was negative. Suspect that some of his discomfort is due to these bony lesions. Images were forwarded to [facility]. Discussed case with Dr. Stanton who was oncology on-call. Discussed plan of putting patient on pain medication Percocet and then have him following up with [facility] here in the next few days for re- evaluation. He is agreeable to the plan. For any worsening symptoms follow up sooner or return to the emergency room. <Amada Viramontes MD - Last Filed: 11/26/18 22:05> Lab Data Lab Results 11/26/18 11/26/18 11/26/18 Range/Units 17:41 17:41 17:41 WBC 3.8 L (4.5-11.0) X10^3/uL RBC 2.78 L (4.5-5.9) X10^6/uL Hgb 9.9 L (13.5-17.5) g/dL Hct 29.0 L (41-53) % MCV 104.2 H (80-100) fL MCH 35.6 H (26-34) PG MCHC 34.1 (30-36) % RDW 18.1 H (11.6-14.8) % Plt Count 97 L (150-400) X10^3/uL Neut % (Auto) 75.3 H (50-75) % Lymph % (Auto) 21.7 L (25-40) % Door % (Auto) 1.9 L (3-14) % Eos % (Auto) 0.2 L (2-4) % Baso % (Auto) 0.9 (0-2) % Neut # (Auto) 2900 (6016-5868) /uL Lymph # (Auto) 800 L (5132-9718) /uL Door # (Auto) 100 (0-900) /uL Eos # (Auto) 0 (0-450) /uL Baso # (Auto) 0 (0-100) /uL D-Dimer 6330 H (<230) ng/mL Sodium 136 L (137-145) mmol/L Potassium 3.9 (3.4-5.1) mmol/L Chloride 104 (98-107) mmol/L Carbon Dioxide 18 L (22-32) mmol/L BUN 18 (9-20) mg/dL Creatinine 1.10 (0.66-1.25) mg/dL Estimated GFR > 60.0 (>60) mL/min BUN/Creatinine Ratio 16.4 (6-22) Glucose 105 (80-110) mg/dL Calcium 9.7 (8.4-10.2) mg/dL Total Bilirubin 1.4 H (0.2-1.3) mg/dL AST 27 (17-59) IU/L ALT 16 L (21-72) IU/L Alkaline Phosphatase 121 (38-126) U/L Total Creatine Kinase 51 L (55-170) U/L CK-MB (CK-2) TNP CK-MB (CK-2) Rel Index TNP Troponin I 0.026 (0.01-0.034) ng/mL Total Protein 7.3 (6.3-8.2) g/dL Albumin 4.4 (3.5-5.0) g/dL Globulin 2.9 (1.7-4.1) g/dL Albumin/Globulin Ratio 1.5 (1.0-2.8) Lipase 28 (23-300) U/L Urine RBC (0-5/HPF) Urine WBC (0-5/HPF) Ur Squamous Epith Cells Amorphous Sediment Urine Bacteria (None) Urine Mucus (Negative) Ur Culture Indicated? 11/26/18 Range/Units 19:07 WBC (4.5-11.0) X10^3/uL RBC (4.5-5.9) X10^6/uL Hgb (13.5-17.5) g/dL Hct (41-53) % MCV (80-100) fL MCH (26-34) PG MCHC (30-36) % RDW (11.6-14.8) % Plt Count (150-400) X10^3/uL Neut % (Auto) (50-75) % Lymph % (Auto) (25-40) % Door % (Auto) (3-14) % Eos % (Auto) (2-4) % Baso % (Auto) (0-2) % Neut # (Auto) (0462-1828) /uL Lymph # (Auto) (6132-2973) /uL Door # (Auto) (0-900) /uL Eos # (Auto) (0-450) /uL Baso # (Auto) (0-100) /uL D-Dimer (<230) ng/mL Sodium (137-145) mmol/L Potassium (3.4-5.1) mmol/L Chloride (98-107) mmol/L Carbon Dioxide (22-32) mmol/L BUN (9-20) mg/dL Creatinine (0.66-1.25) mg/dL Estimated GFR (>60) mL/min BUN/Creatinine Ratio (6-22) Glucose (80-110) mg/dL Calcium (8.4-10.2) mg/dL Total Bilirubin (0.2-1.3) mg/dL AST (17-59) IU/L ALT (21-72) IU/L Alkaline Phosphatase (38-126) U/L Total Creatine Kinase (55-170) U/L CK-MB (CK-2) CK-MB (CK-2) Rel Index Troponin I (0.01-0.034) ng/mL Total Protein (6.3-8.2) g/dL Albumin (3.5-5.0) g/dL Globulin (1.7-4.1) g/dL Albumin/Globulin Ratio (1.0-2.8) Lipase (23-300) U/L Urine RBC 10-30/hpf H (0-5/HPF) Urine WBC 1-5/hpf (0-5/HPF) Ur Squamous Epith Cells 0-1 /hpf Amorphous Sediment 2+ Urine Bacteria Occasional (0-1) (None) Urine Mucus 1+ H (Negative) Ur Culture Indicated? Cult not indicated Urine Dip Bedside Urine Glucose Negative Bedside Urine Bilirubin - Negative Bedside Urine Ketone +/- 5 Urine Specific [place] 1.015 Bedside Urine Occult Blood +++ Bedside Urine pH 8.5 Bedside Urine Protein + 30 Bedside Urine Urobilinogen 1+ 2mg Bedside Urine Nitrite - Negative Bedside Urine Leukocytes - Negative Esterase Discharge Plan Departure Patient Disposition: Home Clinical Impression: Bilateral shoulder pain Qualifiers: Chronicity: acute Qualified Code(s): M25.511 - Pain in right shoulder Discharge Date/Time: 11/26/18 21:26 Interventions: ED Discharge Assessment Last Done: 11/26/18 21:25 Instructions: DI for Shoulder Pain Activity Restrictions/Additional Instructions: Laboratory results show anemia which is consistent with her prior lab values. Cardiac enzymes EKG were unremarkable. CT of the chest was negative for any blood clots in the lungs. CT of the abdomen and the chest show multiple bony lesions to the spine and pelvis area. Suspect that some of the pain into her shoulder area is due to bony lesions to your thoracic spine area. Recommend using the Tylenol as needed for discomfort. Your prescribed some Percocet for breakthrough pain. Call [facility] tomorrow and discuss with them results and discussed with them follow up here in the next few days. For a ny worsening symptoms return to the emergency room or follow up sooner. Prescriptions: New oxycodone-acetaminophen [Percocet] 5-325 mg tablet 1 tab PO Q4-6H PRN (Reason: pain) Qty: 20 RF: 0 No Action loratadine 10 MG tablet 15 mg PO DAILY Qty: 0 RF: 0 fluorouracil [Efudex] 5 % cream 1 cameron Topical DAILY Qty: 0 RF: 0 lisinopril 5 MG tablet 5 mg PO QPM Qty: 0 RF: 0 clobetasol [Cormax] 0.05 % Solution 1 applic TOPICAL BID PRN (Reason: UNKNOWN) RF: 0 acetaminophen 325 mg Tablet 325 mg PO Q4-6H PRN (Reason: Pain) RF: 0 tamsulosin [Flomax] 0.4 mg Capsule 0.4 mg PO BID RF: 0 minocycline 100 mg capsule 100 mg PO DIRECTED PRN (Reason: unknown) RF: 0 cyanocobalamin (vitamin B-12) [Vitamin B-12] 1,000 mcg Tablet 1,000 mcg PO DAILY RF: 0 Lupron Depot (4 month) 30 mg Syringe Kit 1 dose IM DIRECTED RF: 0 folic acid 1 mg Tablet 1 mg PO QPM RF: 0 melatonin 5 mg Tablet 5 mg PO BEDTIME PRN (Reason: Insomnia) RF: 0 Referrals: Davin Ramirez MD [Primary Care Provider] -
[2018-11-26 20:27] VITALS: BP 114/54; PULSE 90; RESP 16; O2SAT 96
[2018-11-26] MEDS: OXYCODONE/APAP 5/325 PREPACK 1 BOTTLE MISC (21:03)
== END 2018-11-26 21:26 | disposition home or self-care (01) ==
PROVIDERS: Emergency Provider Nurse Practitioner Family; Family Provider Internal Medicine; PCP Internal Medicine
DX: M25.511 Pain in right shoulder (principal)
CPT/HCPCS: 36591; 71275; 74177; 80053; 81003; 81015; 82550; 83690; 84484; 85025; 85379; 93005; 93010; 96361; 96374; 96375; 99285; J1170; J2405; Q9967